=== PATIENT | male | born 1955 | race Caucasian/White ===

== ENCOUNTER 2021-01-22 18:13 | Emergency (ER) | payer MEDICARE, OTHER ==
[~2021-01-22] VITALS: Ht 162.6 cm; Wt 85.7 kg
[~2021-01-22 18:13] MED LIST: AMLODIPINE BESYL5 MG PO; ASPIR 8181 MG PO; ATORVASTATIN CA20 MG PO; GLIPIZIDE5 MG PO; INDAPAMIDE1.25 MG PO; LOSARTAN POTASS50 MG PO; METFORMIN HCL1000 MG PO
[2021-01-22] MEDS ORDERED: FUROSEMIDE INJ 10 MG/ML 4 ML VIAL IV ONE ×2 (18:30→19:15)
[2021-01-22] MEDS ORDERED: NITROGLYCERIN 2% OINT 1 GM PKT TOP ONE (18:30)
[2021-01-22 18:32] LABS: BASOPHILS # (AUTO) 0.1 (0.0-0.1); BASOPHILS % 0.7 % (0.0-1.0); EOSINOPHILS # (AUTO) 0.4 (0.0-0.4); EOSINOPHILS % 2.8 % (0.0-6.0); HEMATOCRIT 39.6 % (38.2-49.6); LYMPHOCYTES # (AUTO) 4.5 (1.0-3.2); LYMPHOCYTES % 29.8 % (18.0-39.1); MEAN CORPUSCULAR HGB CONC 30.3 g/dL (31-35); MEAN CORPUSCULAR VOLUME 92.3 fL (81-99); MONOCYTES # (AUTO) 0.9 (0.2-0.8); MONOCYTES % 6.2 % (4.4-11.3); NEUTROPHILS # (AUTO) 9.1 (2.1-6.9); NEUTROPHILS % 60.1 % (38.7-80.0); PLATELET COUNT 281 x10e3/uL (140-360); RED BLOOD COUNT 4.29 x10e6/uL (4.3-5.7); RED CELL DISTRIBUTION WIDTH 14.8 % (11.7-14.4)
[2021-01-22 18:51] LABS: ALBUMIN 3.6 g/dL (3.5-5.0); ALBUMIN/GLOBULIN RATIO 1.1 (0.8-2.0); ANION GAP 22.6 mmol/L (8-16); CALCIUM 9.2 mg/dL (8.4-10.2); CREATININE, SERUM 3.2 mg/dL (0.72-1.25); POTASSIUM 4.6 mmol/L (3.5-5.1)
[2021-01-22 18:58] LABS: CREATINE KINASE MB 1.7 ng/mL (0-5.0)
[2021-01-22 18:59] LABS: B-TYPE NATRIURETIC PEPTIDE2 3601.5 pg/mL (0-100)
[2021-01-22] MEDS ORDERED: NITROGLYCERIN/D5W 200 MCG/ML 250 ML ONE (19:14)
[2021-01-22] MEDS ORDERED: NITROGLYCERIN/D5W 200 MCG/ML 250 ML IV SCH (19:15)
[2021-01-22] MEDS ORDERED: CHLOROTHIAZIDE SODIUM 500 MG VIAL IV ONE (21:30)
[2021-01-22] MEDS ORDERED: DEXTROSE 50% SYRINGE 50 ML IV PRN (21:45)
[2021-01-22] MEDS ORDERED: INSULIN REGULAR, HUMAN 100 UNIT/1 ML SQ SCH (22:00)
[2021-01-23] MEDS ORDERED: HEPARIN 25,000 UNIT 800 UNIT in DEXTROSE 5% 250ML 250 ML IV SCH ×2
[2021-01-23] MEDS ORDERED: HEPARIN SOD (PORCINE) 5,000 UNIT/ML VIAL IV ONE
[2021-01-23 01:02] LABS: INR 0.94; PARTIAL THROMBOPLASTIN TIME 27.5 seconds (23.8-35.5); PROTHROMBIN TIME 13.3 seconds (11.9-14.5)
[2021-01-23] MEDS ORDERED: HEPARIN 25,000 UNIT DRIP IV ONE (01:37)
[2021-01-23 02:36] LABS: CREATINE KINASE MB 113.7 ng/mL (0-5.0)
[2021-01-23] MEDS ORDERED: METOPROLOL TARTRATE INJ 1 MG/ML VIAL IV PRN (02:45)
[2021-01-23 02:52] LABS: MAGNESIUM 1.9 MG/DL (1.3-2.1); PHOSPHORUS 3.5 MG/DL (2.3-4.7)
[2021-01-23 03:13] LABS: THYROID STIMULATING HORMONE 0.628 uIU/mL (0.350-4.940)
[2021-01-23] MEDS ORDERED: AMLODIPINE BESYLATE 5 MG TAB PO SCH (09:00)
[2021-01-23] MEDS ORDERED: ASPIRIN 81 MG CHEW TAB PO SCH (09:00)
[2021-01-23] MEDS ORDERED: FUROSEMIDE INJ 10 MG/ML 4 ML VIAL IV SCH (09:00)
[2021-01-23] MEDS ORDERED: ATORVASTATIN 20 MG TAB PO SCH (21:00)
== END 2021-01-23 06:05 | disposition other institution (70) ==
LOC: ER 18:16 → UNDOADMIN 21:48 → ERHOLD 21:48 → ER 01-23 06:05
DX: J96.01 Acute respiratory failure with hypoxia (principal); J81.0 Acute pulmonary edema; I12.9 Hypertensive chronic kidney disease with stage 1 through stage 4 chronic kidney disease, or unspecified chronic kidney disease; E11.22 Type 2 diabetes mellitus with diabetic chronic kidney disease; N18.9 Chronic kidney disease, unspecified; I50.9 Heart failure, unspecified; K21.9 Gastro-esophageal reflux disease without esophagitis; Z95.810 Presence of automatic (implantable) cardiac defibrillator; Z20.822 Contact with and (suspected) exposure to COVID-19
CPT/HCPCS: 36415; 36600; 51700; 71045; 80053; 80061; 82550; 82553; 82948; 83605; 83735; 83880; 84100; 84443; 84484; 85025; 85610; 85730; 87040; 93005 ×2; 94799; 99285; J1205; J1644; J1940; U0002

== ENCOUNTER 2021-12-21 19:13 | Inpatient (IN) | payer MEDICARE ==
[~2021-12-21] VITALS: Ht 162.6 cm; Wt 85.7 kg
[2021-12-21 20:07] LABS: BASOPHILS % 0.1 % (0.0-1.0); EOSINOPHILS % 0.3 % (0.0-6.0); HEMATOCRIT 41.4 % (38.2-49.6); HEMOGLOBIN 12.9 g/dL (14.0-18.0); LYMPHOCYTES # (AUTO) 0.6 (1.0-3.2); LYMPHOCYTES % 5.8 % (18.0-39.1); MEAN CORPUSCULAR HEMOGLOBIN 29.3 pg (28-32); MEAN CORPUSCULAR HGB CONC 31.2 g/dL (31-35); MEAN CORPUSCULAR VOLUME 93.9 fL (81-99); MONOCYTES # (AUTO) 0.6 (0.2-0.8); MONOCYTES % 5.4 % (4.4-11.3); NEUTROPHILS # (AUTO) 9.5 (2.1-6.9); PLATELET COUNT 175 x10e3/uL (140-360); RED BLOOD COUNT 4.41 x10e6/uL (4.3-5.7); RED CELL DISTRIBUTION WIDTH 17.2 % (11.7-14.4)
[2021-12-21 20:26] LABS: ALBUMIN 3.1 g/dL (3.5-5.0); ALBUMIN/GLOBULIN RATIO 0.7 (0.8-2.0); ANION GAP 24.4 mmol/L (8-16); CALCIUM 9.1 mg/dL (8.4-10.2); CREATININE, SERUM 5.7 mg/dL (0.72-1.25); POTASSIUM 5.4 mmol/L (3.5-5.1)
[2021-12-21] MEDS ORDERED: ONDANSETRON HCL INJ 2MG/ML 2ML 2 MG/ML VIAL IV PRN (21:00)
[2021-12-21] MEDS ORDERED: FUROSEMIDE INJ 10 MG/ML 4 ML VIAL IV ONE (21:00)
[2021-12-21] MEDS ORDERED: ACETAMINOPHEN 325 MG TAB PO ONE (23:00)
[2021-12-22] MEDS: ACETAMINOPHEN 325 MG TAB PO PRN (04:30)
[2021-12-22 04:50] LABS: BASOPHILS % 0.3 % (0.0-1.0); EOSINOPHILS % 0.3 % (0.0-6.0); HEMATOCRIT 42.2 % (38.2-49.6); HEMOGLOBIN 12.9 g/dL (14.0-18.0); LYMPHOCYTES # (AUTO) 0.7 (1.0-3.2); LYMPHOCYTES % 6.5 % (18.0-39.1); MEAN CORPUSCULAR HEMOGLOBIN 28.8 pg (28-32); MEAN CORPUSCULAR HGB CONC 30.6 g/dL (31-35); MEAN CORPUSCULAR VOLUME 94.2 fL (81-99); MONOCYTES # (AUTO) 0.6 (0.2-0.8); MONOCYTES % 5.2 % (4.4-11.3); NEUTROPHILS # (AUTO) 9.8 (2.1-6.9); NEUTROPHILS % 87.2 % (38.7-80.0); PLATELET COUNT 189 x10e3/uL (140-360); RED BLOOD COUNT 4.48 x10e6/uL (4.3-5.7); RED CELL DISTRIBUTION WIDTH 16.8 % (11.7-14.4)
[2021-12-22 05:07] LABS: ALBUMIN 3.1 g/dL (3.5-5.0); ALBUMIN/GLOBULIN RATIO 0.8 (0.8-2.0); ANION GAP 22.6 mmol/L (8-16); CALCIUM 9.5 mg/dL (8.4-10.2); CREATININE, SERUM 6.4 mg/dL (0.72-1.25); POTASSIUM 4.6 mmol/L (3.5-5.1)
[2021-12-22] MEDS ORDERED: VITAMIN C1000 MG PO (07:38)
[2021-12-22] MEDS ORDERED: METOPROLOL SUCC25 MG PO (07:38)
[2021-12-22] MEDS ORDERED: CLOPIDOGREL75 MG PO (07:38)
[2021-12-22] MEDS ORDERED: ENTRESTO 24 MG1 EACH PO (07:38)
[2021-12-22] MEDS ORDERED: AMIODARONE HCL200 MG PO (07:38)
[2021-12-22] MEDS ORDERED: RENVELA0.8 GM PO (07:38)
[2021-12-22] MEDS ORDERED: TRADJENTA5 MG PO (07:38)
[2021-12-22] MEDS ORDERED: B12 ACTIVE1000 MCG PO (07:38)
[2021-12-22] MEDS ORDERED: LASIX40 MG PO (07:38)
[2021-12-22] MEDS ORDERED: EPOETIN ALFA-EPBX 10,000 UNIT/ML VIAL SC ONE (11:30)
[2021-12-22 12:39] VITALS: BP 117/67
[2021-12-22 12:48] VITALS: BP 117/67
[2021-12-22] MEDS: SEVELAMER CARBONATE 800 MG TAB PO SCH ×2 (12:48→19:28)
[2021-12-22 14:13] LABS: CREATINE KINASE MB 1.2 ng/mL (0-5.0)
[2021-12-22] MEDS: Morphine 4mg INJECTION 4 MG/ML INJ IV PRN (14:27)
[2021-12-22] MEDS ORDERED: LIDOCAINE 1% 10 ML MULTIDOSE VIAL IJ ONE (14:56)
[2021-12-22 15:56] VITALS: BP 120/72
[2021-12-22 20:00] VITALS: BP 112/70
[2021-12-22 22:55] VITALS: BP 112/70
[2021-12-22 23:39] VITALS: BP 112/70
[2021-12-23] VITALS (7 sets, daily range): BP systolic 93–125; BP diastolic 56–80
[2021-12-23] MEDS: SEVELAMER CARBONATE 800 MG TAB PO SCH ×3 (09:32→17:39)
[2021-12-23] MEDS ORDERED: SEVELAMER CARBONATE 800 MG TAB PO SCH (17:00)
[2021-12-23] MEDS: FUROSEMIDE 40 MG TAB PO SCH (17:39)
[2021-12-23] MEDS: VALSARTAN/SACUBITRIL 24MG/26MG 1 EA TAB PO SCH ×2 (18:11→18:15)
[2021-12-23] MEDS: ATORVASTATIN 20 MG TAB PO SCH (21:59)
[2021-12-23] MEDS: Morphine 4mg INJECTION 4 MG/ML INJ IV PRN (22:05)
[2021-12-24] VITALS (8 sets, daily range): BP systolic 115–125; BP diastolic 69–80
[2021-12-24] MEDS: ASCORBIC ACID 500 MG TAB PO SCH (09:00)
[2021-12-24] MEDS: METOPROLOL SUCCINATE 25 MG TAB XL PO SCH (09:00)
[2021-12-24] MEDS: SEVELAMER CARBONATE 800 MG TAB PO SCH ×3 (09:50→17:00)
[2021-12-24] MEDS: ASPIRIN 81 MG CHEW TAB PO SCH (09:52)
[2021-12-24] MEDS: FUROSEMIDE 40 MG TAB PO SCH (09:53)
[2021-12-24] MEDS: CLOPIDOGREL BISULFATE 75 MG TAB PO SCH (09:53)
[2021-12-24] MEDS: VALSARTAN/SACUBITRIL 24MG/26MG 1 EA TAB PO SCH ×2 (09:53→17:00)
[2021-12-24] MEDS: AMIODARONE HCL 200 MG TAB PO SCH (10:03)
[2021-12-24] MEDS ORDERED: ONDANSETRON HCL 4 MG ORAL DISINTEGRATING TAB PO PRN (11:15)
[2021-12-24] MEDS ORDERED: SODIUM CHLORIDE 0.9% 1000ML 2,000 ML IV PRN (16:15)
[2021-12-25] VITALS: BP 118/68
[2021-12-25] MEDS: ATORVASTATIN 20 MG TAB PO SCH ×2 (01:28→09:27)
[2021-12-25] MEDS: FUROSEMIDE 40 MG TAB PO SCH ×2 (01:28→09:26)
[2021-12-25] MEDS: ACETAMINOPHEN 325 MG TAB PO PRN (01:29)
[2021-12-25] MEDS: Morphine 4mg INJECTION 4 MG/ML INJ IV PRN (03:39)
[2021-12-25 04:00] VITALS: BP 100/64
[2021-12-25 08:32] VITALS: BP 108/68
[2021-12-25] MEDS: ASPIRIN 81 MG CHEW TAB PO SCH (09:26)
[2021-12-25] MEDS: AMIODARONE HCL 200 MG TAB PO SCH (09:27)
[2021-12-25] MEDS: ASCORBIC ACID 500 MG TAB PO SCH (09:27)
[2021-12-25] MEDS: SEVELAMER CARBONATE 800 MG TAB PO SCH ×2 (09:28→11:52)
[2021-12-25] MEDS: METOPROLOL SUCCINATE 25 MG TAB XL PO SCH (09:28)
[2021-12-25] MEDS: CLOPIDOGREL BISULFATE 75 MG TAB PO SCH (09:28)
[2021-12-25] MEDS: VALSARTAN/SACUBITRIL 24MG/26MG 1 EA TAB PO SCH (09:28)
[2021-12-25 11:27] VITALS: BP 106/60
== END 2021-12-25 13:56 | disposition home or self-care (01) | DRG 291 ==
LOC: ER 19:23 → INTOOBSV 20:48 → ERHOLD 20:48 → MED/SURG2 12-22 11:30 → OBSVTOIN 12-23 15:23
PROC: 5A1D70Z Performance of Urinary Filtration, Intermittent, Less than 6 Hours Per Day (ICD-10-PCS; principal; 2021-12-23)
DX: I13.2 Hypertensive heart and chronic kidney disease with heart failure and with stage 5 chronic kidney disease, or end stage renal disease (principal); I50.23 Acute on chronic systolic (congestive) heart failure; N18.6 End stage renal disease; E11.22 Type 2 diabetes mellitus with diabetic chronic kidney disease; Z99.2 Dependence on renal dialysis; Z79.4 Long term (current) use of insulin; Z95.810 Presence of automatic (implantable) cardiac defibrillator; E11.69 Type 2 diabetes mellitus with other specified complication; E78.5 Hyperlipidemia, unspecified; I25.10 Atherosclerotic heart disease of native coronary artery without angina pectoris; J20.9 Acute bronchitis, unspecified; Z20.822 Contact with and (suspected) exposure to COVID-19
CPT/HCPCS: 36415; 36589; 71045; 74470; 76705; 80053; 82550; 82553; 82948; 83690; 83880; 84484; 85025; 86706; 87350; 93005; 94799; 99284; G0378; J0696; J1940; J2270; J2405; J7030

== ENCOUNTER → 2022-05-07 | Outpatient (CLI) | payer MEDICARE ==
[~2022-05-07] MED LIST changes: +ALBUMIN 25% 12.5GM 50ML 100 ML IV ONE; +AMIODARONE HCL200 MG PO; +B12 ACTIVE1000 MCG PO; +CLOPIDOGREL75 MG PO; +ENTRESTO 24 MG1 EACH PO; +LASIX40 MG PO; +METOPROLOL SUCC25 MG PO; +RENVELA0.8 GM PO; +TRADJENTA5 MG PO; +VITAMIN C1000 MG PO
[2022-05-07 13:28] LABS: HEMOGLOBIN 12.8 g/dL (14.0-18.0)
[2022-05-07 13:41] LABS: INR 1.09; PARTIAL THROMBOPLASTIN TIME 40.2 seconds (23.8-35.5); PROTHROMBIN TIME 14.6 seconds (11.9-14.5)
== END ==
LOC: US 12:19
PROVIDERS: ATTEND Internal Medicine Nephrology
DX: R18.8 Other ascites (principal)
CPT/HCPCS: 36415; 49083; 85014; 85049; 85610; 85730; C1729

== ENCOUNTER → 2022-06-04 | Outpatient (CLI) | payer MEDICARE ==
[~2022-06-04] MED LIST changes: -ALBUMIN 25% 12.5GM 50ML 100 ML IV ONE; +ALBUMIN 25% 12.5GM 50ML 150 ML IV ONE
[2022-06-04 13:01] LABS: HEMOGLOBIN 11.7 g/dL (14.0-18.0)
[2022-06-04 13:11] LABS: INR 1.11; PROTHROMBIN TIME 14.8 seconds (11.9-14.5)
[2022-06-04 13:12] LABS: PARTIAL THROMBOPLASTIN TIME 44.3 seconds (23.8-35.5)
== END ==
LOC: US 12:12
PROVIDERS: ATTEND Internal Medicine Nephrology
DX: R18.8 Other ascites (principal)
CPT/HCPCS: 36415; 49083; 85014; 85049; 85610; 85730; C1729

== ENCOUNTER 2022-07-27 17:08 | Emergency (ER) | payer MEDICARE ==
[~2022-07-27] VITALS: Ht 162.6 cm; Wt 85.7 kg
[~2022-07-27 17:08] MED LIST changes: -ALBUMIN 25% 12.5GM 50ML 150 ML IV ONE
[2022-07-27] MEDS ORDERED: SODIUM CHLORIDE 0.9% 1000ML 500 ML IV ONE (17:45)
[2022-07-27] MEDS ORDERED: Vancomycin IV 1 GM in SODIUM CHLORIDE 0.9% 250ML 250 ML IV ONE (17:45)
[2022-07-27 17:51] LABS: CLARITY,URINE SL CLOUDY (CLEAR); COLOR,URINE YELLOW (YELLOW); LEUKOCYTE ESTERASE ,URINE NEGATIVE (NEGATIVE); NITRITE,URINE NEGATIVE (NEGATIVE)
[2022-07-27 17:52] LABS: KETONES,URINE NEGATIVE (NEGATIVE); PROTEIN,URINE DIPSTICK 2+ (NEGATIVE); URINE UROBILINOGEN 0.2 mg/dL (0.2 - 1)
[2022-07-27 17:54] LABS: HEMATOCRIT 35.2 % (38.2-49.6); HEMOGLOBIN 11.2 g/dL (14.0-18.0); LYMPHOCYTES # (AUTO) 0.1 (1.0-3.2); LYMPHOCYTES % 2.3 % (18.0-39.1); MEAN CORPUSCULAR HEMOGLOBIN 30.5 pg (28-32); MEAN CORPUSCULAR HGB CONC 31.8 g/dL (31-35); MEAN CORPUSCULAR VOLUME 95.9 fL (81-99); MONOCYTES # (AUTO) 0.1 (0.2-0.8); MONOCYTES % 1.3 % (4.4-11.3); NEUTROPHILS # (AUTO) 3.8 (2.1-6.9); NEUTROPHILS % 95.4 % (38.7-80.0); PLATELET COUNT 179 x10e3/uL (140-360); RED BLOOD COUNT 3.67 x10e6/uL (4.3-5.7); RED CELL DISTRIBUTION WIDTH 14.9 % (11.7-14.4)
[2022-07-27] MEDS ORDERED: ACETAMINOPHEN 1000 MG/100 ML IV SCH (18:00)
[2022-07-27 18:04] LABS: AMORPHOUS SEDIMENT,URINE MODERATE (FEW); BACTERIA,URINE MODERATE /HPF
[2022-07-27 18:05] LABS: ALBUMIN 2.5 g/dL (3.5-5.0); ALBUMIN/GLOBULIN RATIO 0.6 (0.8-2.0); ANION GAP 20.3 mmol/L (8-16); CALCIUM 8.8 mg/dL (8.4-10.2); CREATININE, SERUM 5.2 mg/dL (0.72-1.25); POTASSIUM 4.3 mmol/L (3.5-5.1)
[2022-07-27 18:20] LABS: ABG PH 7.48 (7.35-7.45)
[2022-07-27 18:21] LABS: ABG HCO3 22 mmol/L (22-26); ABG PCO2 30 mmHg (35-45); ABG PO2 81 mmHg (80-105); ABG TCO2 23
[2022-07-27 18:22] VITALS: PULSE 74; RESP 20; O2SAT 98
[2022-07-27] MEDS ORDERED: SODIUM CHLORIDE 0.9% 100 ML ONE (18:36)
[2022-07-27] MEDS ORDERED: IOPAMIDOL 370 MG/ML 100 ML INFUS..BTL INJ ONE (18:37)
[2022-07-27] MEDS ORDERED: SODIUM CHLORIDE 0.9% 250ML 250 ML IV ONE (19:45)
[2022-07-27 19:57] LABS: INR 1.1; PROTHROMBIN TIME 14.7 seconds (11.9-14.5)
[2022-07-27 19:58] LABS: PARTIAL THROMBOPLASTIN TIME 35.8 seconds (23.8-35.5)
[2022-07-27] MEDS: NOREPINEPHRINE 8 MG/D5W 250 ML 250 ML IV SCH ×2 (20:45→20:50)
[2022-07-27 21:50] VITALS: BP 94/58; PULSE 65; RESP 12; TEMP 100.5; O2SAT 99
== END 2022-07-27 22:06 | disposition other institution (70) ==
LOC: ER 17:17
DX: I71.30 Abdominal aortic aneurysm, ruptured, unspecified (principal); I95.9 Hypotension, unspecified; I12.0 Hypertensive chronic kidney disease with stage 5 chronic kidney disease or end stage renal disease; E11.22 Type 2 diabetes mellitus with diabetic chronic kidney disease; N18.6 End stage renal disease; Z99.2 Dependence on renal dialysis; R18.8 Other ascites; K74.60 Unspecified cirrhosis of liver; R53.1 Weakness; E87.70 Fluid overload, unspecified; I50.9 Heart failure, unspecified; I48.91 Unspecified atrial fibrillation; K21.9 Gastro-esophageal reflux disease without esophagitis; Z20.822 Contact with and (suspected) exposure to COVID-19; Z95.5 Presence of coronary angioplasty implant and graft; Z95.810 Presence of automatic (implantable) cardiac defibrillator
CPT/HCPCS: 36415; 36600; 51700; 71045; 74174; 80053; 81001; 82805; 83605; 84484; 85025; 85610; 85730; 86850; 86900; 86920; 87040; 87071; 87086; 87186; 87205; 93005; 94799; 99285; J0131; J2543; J3370; J7030; J7050 ×2; Q9967; U0002

== ENCOUNTER → 2022-09-17 | Outpatient (CLI) | payer MEDICARE ==
[~2022-09-17] MED LIST changes: +ALBUMIN 25% 12.5GM 50ML 200 ML IV ONE
[2022-09-17 14:29] LABS: BASOPHILS % 0.3 % (0.0-1.0); EOSINOPHILS % 0.5 % (0.0-6.0); HEMATOCRIT 33.7 % (38.2-49.6); HEMOGLOBIN 10.5 g/dL (14.0-18.0); LYMPHOCYTES # (AUTO) 0.7 (1.0-3.2); LYMPHOCYTES % 11.5 % (18.0-39.1); MEAN CORPUSCULAR HEMOGLOBIN 29.7 pg (28-32); MEAN CORPUSCULAR HGB CONC 31.2 g/dL (31-35); MEAN CORPUSCULAR VOLUME 95.5 fL (81-99); MONOCYTES # (AUTO) 0.4 (0.2-0.8); MONOCYTES % 6.1 % (4.4-11.3); NEUTROPHILS # (AUTO) 4.9 (2.1-6.9); NEUTROPHILS % 81.3 % (38.7-80.0); PLATELET COUNT 195 x10e3/uL (140-360); RED BLOOD COUNT 3.53 x10e6/uL (4.3-5.7)
[2022-09-17 14:51] LABS: INR 1.12; PROTHROMBIN TIME 15.1 seconds (11.9-14.5)
[2022-09-17 14:52] LABS: PARTIAL THROMBOPLASTIN TIME 35.5 seconds (23.8-35.5)
== END ==
LOC: US 13:26
PROVIDERS: ATTEND Internal Medicine Nephrology
DX: R18.8 Other ascites (principal)
CPT/HCPCS: 36415; 49083; 85025; 85610; 85730; C1729

== ENCOUNTER → 2023-12-16 | Outpatient (REF) | payer MEDICARE ==
[~2023-12-16] MED LIST changes: -ALBUMIN 25% 12.5GM 50ML 200 ML IV ONE; +ALBUMIN 25% 12.5GM 50ML 300 ML IV ONE
[2023-12-16 12:58] LABS: BASOPHILS # (AUTO) 0.1 (0.0-0.1); BASOPHILS % 0.8 % (0.0-1.0); EOSINOPHILS # (AUTO) 0.2 (0.0-0.4); EOSINOPHILS % 2.3 % (0.0-6.0); HEMATOCRIT 38.7 % (38.2-49.6); HEMOGLOBIN 11.9 g/dL (14.0-18.0); LYMPHOCYTES # (AUTO) 0.8 (1.0-3.2); LYMPHOCYTES % 12.8 % (18.0-39.1); MEAN CORPUSCULAR HEMOGLOBIN 29.2 pg (28-32); MEAN CORPUSCULAR HGB CONC 30.7 g/dL (31-35); MEAN CORPUSCULAR VOLUME 95.1 fL (81-99); MONOCYTES # (AUTO) 0.7 (0.2-0.8); MONOCYTES % 10.9 % (4.4-11.3); NEUTROPHILS # (AUTO) 4.7 (2.1-6.9); NEUTROPHILS % 72.9 % (38.7-80.0); PLATELET COUNT 181 x10e3/uL (140-360); RED BLOOD COUNT 4.07 x10e6/uL (4.3-5.7); RED CELL DISTRIBUTION WIDTH 18.4 % (11.7-14.4)
[2023-12-16 13:14] LABS: INR 1.14; PROTHROMBIN TIME 15.2 seconds (11.9-14.5)
[2023-12-16 13:15] LABS: PARTIAL THROMBOPLASTIN TIME 32.5 seconds (23.8-35.5)
== END ==
LOC: US 12:10
PROVIDERS: ATTEND Internal Medicine Nephrology
DX: R18.8 Other ascites (principal)
CPT/HCPCS: 36415; 49083; 85025; 85610; 85730

== ENCOUNTER → 2024-01-18 | Outpatient (REF) | payer MEDICARE ==
[2024-01-18 13:49] LABS: BASOPHILS # (AUTO) 0.1 (0.0-0.1); EOSINOPHILS # (AUTO) 0.2 (0.0-0.4); EOSINOPHILS % 2.5 % (0.0-6.0); HEMATOCRIT 40.2 % (38.2-49.6); HEMOGLOBIN 12.3 g/dL (14.0-18.0); LYMPHOCYTES # (AUTO) 0.8 (1.0-3.2); LYMPHOCYTES % 11.2 % (18.0-39.1); MEAN CORPUSCULAR HEMOGLOBIN 29.7 pg (28-32); MEAN CORPUSCULAR HGB CONC 30.6 g/dL (31-35); MEAN CORPUSCULAR VOLUME 97.1 fL (81-99); MONOCYTES # (AUTO) 0.7 (0.2-0.8); MONOCYTES % 9.5 % (4.4-11.3); NEUTROPHILS # (AUTO) 5.2 (2.1-6.9); NEUTROPHILS % 75.7 % (38.7-80.0); PLATELET COUNT 187 x10e3/uL (140-360); RED BLOOD COUNT 4.14 x10e6/uL (4.3-5.7); RED CELL DISTRIBUTION WIDTH 17.2 % (11.7-14.4); WHITE BLOOD COUNT 6.85 x10e3/uL (4.8-10.8)
[2024-01-18 13:53] LABS: INR 1.06; PROTHROMBIN TIME 14.4 seconds (11.9-14.5)
[2024-01-18 13:54] LABS: PARTIAL THROMBOPLASTIN TIME 35.3 seconds (23.8-35.5)
== END ==
LOC: US 12:57
PROVIDERS: ATTEND Internal Medicine Nephrology
DX: R18.8 Other ascites (principal)
CPT/HCPCS: 36415; 49083; 85025; 85610; 85730

== ENCOUNTER → 2024-02-17 | Outpatient (REF) | payer MEDICARE | LOC: US 13:12 | PROVIDERS: ATTEND Internal Medicine Nephrology | DX: R18.8 Other ascites (principal) | CPT/HCPCS: 49083 ==

== ENCOUNTER → 2024-03-19 | Outpatient (REF) | payer MEDICARE ==
[~2024-03-19] MED LIST changes: +ALBUMIN 25% 12.5GM 50ML 200 ML IV ONE; -ALBUMIN 25% 12.5GM 50ML 300 ML IV ONE
[2024-03-19 12:55] LABS: BASOPHILS # (AUTO) 0.1 (0.0-0.1); BASOPHILS % 0.9 % (0.0-1.0); EOSINOPHILS # (AUTO) 0.2 (0.0-0.4); EOSINOPHILS % 1.9 % (0.0-6.0); HEMATOCRIT 41.3 % (38.2-49.6); HEMOGLOBIN 12.5 g/dL (14.0-18.0); LYMPHOCYTES # (AUTO) 0.8 (1.0-3.2); MEAN CORPUSCULAR HGB CONC 30.3 g/dL (31-35); MEAN CORPUSCULAR VOLUME 99.3 fL (81-99); MONOCYTES # (AUTO) 0.6 (0.2-0.8); MONOCYTES % 7.2 % (4.4-11.3); NEUTROPHILS # (AUTO) 6.2 (2.1-6.9); NEUTROPHILS % 79.7 % (38.7-80.0); PLATELET COUNT 196 x10e3/uL (140-360); RED BLOOD COUNT 4.16 x10e6/uL (4.3-5.7); RED CELL DISTRIBUTION WIDTH 15.8 % (11.7-14.4); WHITE BLOOD COUNT 7.77 x10e3/uL (4.8-10.8)
[2024-03-19 13:16] LABS: INR 1.14; PROTHROMBIN TIME 15.3 seconds (11.9-14.5)
== END ==
LOC: US 12:18
PROVIDERS: ATTEND Internal Medicine Nephrology
DX: R18.8 Other ascites (principal)
CPT/HCPCS: 36415; 49083; 85025; 85610; 85730

== ENCOUNTER → 2024-04-20 | Outpatient (REF) | payer MEDICARE ==
[~2024-04-20] MED LIST changes: +ALBUMIN 25% 12.5GM 50ML 100 ML IV ONE
== END ==
LOC: US 12:20
PROVIDERS: ATTEND Internal Medicine Nephrology
DX: R18.8 Other ascites (principal)
CPT/HCPCS: 49083; C1729

== ENCOUNTER → 2024-05-18 | Outpatient (REF) | payer MEDICARE ==
[~2024-05-18] MED LIST changes: -ALBUMIN 25% 12.5GM 50ML 100 ML IV ONE
[2024-05-18 13:33] LABS: BASOPHILS # (AUTO) 0.1 (0.0-0.1); BASOPHILS % 0.9 % (0.0-1.0); EOSINOPHILS # (AUTO) 0.2 (0.0-0.4); EOSINOPHILS % 3.1 % (0.0-6.0); HEMATOCRIT 34.1 % (38.2-49.6); LYMPHOCYTES # (AUTO) 0.8 (1.0-3.2); MEAN CORPUSCULAR HGB CONC 32.3 g/dL (31-35); MEAN CORPUSCULAR VOLUME 92.9 fL (81-99); MONOCYTES # (AUTO) 0.7 (0.2-0.8); MONOCYTES % 10.1 % (4.4-11.3); NEUTROPHILS # (AUTO) 5.1 (2.1-6.9); NEUTROPHILS % 74.5 % (38.7-80.0); PLATELET COUNT 192 x10e3/uL (140-360); RED BLOOD COUNT 3.67 x10e6/uL (4.3-5.7); RED CELL DISTRIBUTION WIDTH 16.4 % (11.7-14.4)
[2024-05-18 13:51] LABS: INR 1.27; PROTHROMBIN TIME 16.6 seconds (11.9-14.5)
[2024-05-18 13:52] LABS: PARTIAL THROMBOPLASTIN TIME 38.1 seconds (23.8-35.5)
== END ==
LOC: US 13:06
PROVIDERS: ATTEND Internal Medicine Nephrology
DX: R18.8 Other ascites (principal)
CPT/HCPCS: 36415; 49083; 85025; 85610; 85730

== ENCOUNTER → 2024-06-25 | Outpatient (REF) | payer MEDICARE ==
[2024-06-25 11:03] LABS: BASOPHILS # (AUTO) 0.1 (0.0-0.1); BASOPHILS % 0.8 % (0.0-1.0); EOSINOPHILS # (AUTO) 0.1 (0.0-0.4); HEMATOCRIT 33.7 % (38.2-49.6); HEMOGLOBIN 10.8 g/dL (14.0-18.0); LYMPHOCYTES # (AUTO) 0.7 (1.0-3.2); LYMPHOCYTES % 10.2 % (18.0-39.1); MEAN CORPUSCULAR HEMOGLOBIN 29.6 pg (28-32); MEAN CORPUSCULAR VOLUME 92.3 fL (81-99); MONOCYTES # (AUTO) 0.6 (0.2-0.8); MONOCYTES % 9.6 % (4.4-11.3); NEUTROPHILS % 77.1 % (38.7-80.0); PLATELET COUNT 206 x10e3/uL (140-360); RED BLOOD COUNT 3.65 x10e6/uL (4.3-5.7); RED CELL DISTRIBUTION WIDTH 16.4 % (11.7-14.4); WHITE BLOOD COUNT 6.45 x10e3/uL (4.8-10.8)
[2024-06-25 11:22] LABS: INR 1.08; PROTHROMBIN TIME 14.7 seconds (11.9-14.5)
[2024-06-25 11:23] LABS: PARTIAL THROMBOPLASTIN TIME 34.6 seconds (23.8-35.5)
== END ==
LOC: US 10:10
PROVIDERS: ATTEND Internal Medicine Nephrology
DX: R18.8 Other ascites (principal)
CPT/HCPCS: 36415; 49083; 85025; 85610; 85730; C1729

== ENCOUNTER → 2024-09-05 | Outpatient (REF) | payer MEDICARE | LOC: US 12:57 | PROVIDERS: ATTEND Internal Medicine Nephrology | DX: R18.8 Other ascites (principal) | CPT/HCPCS: 49083 ==

== ENCOUNTER → 2024-10-05 | Outpatient (REF) | payer MEDICARE ==
[~2024-10-05] MED LIST changes: +ALBUMIN 25% 12.5GM 50ML 150 ML IV ONE; -ALBUMIN 25% 12.5GM 50ML 200 ML IV ONE
[2024-10-05 10:10] LABS: BASOPHILS % 0.8 % (0.0-1.0); EOSINOPHILS % 3.1 % (0.0-6.0); LYMPHOCYTES % 13.2 % (18.0-39.1); MONOCYTES % 10.4 % (4.4-11.3); NEUTROPHILS % 72.2 % (38.7-80.0); RED CELL DISTRIBUTION WIDTH 15.9 % (11.7-14.4)
[2024-10-05 10:32] LABS: INR 1.03
== END ==
LOC: US 08:58
PROVIDERS: ATTEND Internal Medicine Nephrology
DX: R18.8 Other ascites (principal)
CPT/HCPCS: 36415; 49083; 85025; 85610; 85730; C1729

== ENCOUNTER → 2024-11-05 | Outpatient (REF) | payer MEDICARE ==
[~2024-11-05] MED LIST changes: -ALBUMIN 25% 12.5GM 50ML 150 ML IV ONE; +ALBUMIN 25% 12.5GM 50ML 200 ML IV ONE
== END ==
LOC: US 09:13
PROVIDERS: ATTEND Internal Medicine Nephrology
DX: R18.8 Other ascites (principal)
CPT/HCPCS: 49083

== ENCOUNTER → 2024-12-03 | Outpatient (REF) | payer MEDICARE ==
[2024-12-03 08:33] LABS: BASOPHILS % 0.8 % (0.0-1.0); EOSINOPHILS % 4.2 % (0.0-6.0); LYMPHOCYTES % 12.5 % (18.0-39.1); MONOCYTES % 11.5 % (4.4-11.3); NEUTROPHILS % 70.8 % (38.7-80.0); RED CELL DISTRIBUTION WIDTH 15.3 % (11.7-14.4)
[2024-12-03 08:51] LABS: INR 1.21
== END ==
LOC: US 08:00
PROVIDERS: ATTEND Internal Medicine Nephrology
DX: R18.8 Other ascites (principal)
CPT/HCPCS: 36415; 49083; 85025; 85610; 85730

== ENCOUNTER → 2024-12-26 | Outpatient (REF) | payer MEDICARE | LOC: US 13:29 | PROVIDERS: ATTEND Internal Medicine Nephrology | DX: K72.90 Hepatic failure, unspecified without coma (principal); R18.8 Other ascites | CPT/HCPCS: 49083 ==